=== PATIENT | male | born 1955 | race African-American/Black ===

== ENCOUNTER 2016-12-20 15:10 | Emergency (ER) | payer MEDICARE, OTHER ==
[~2016-12-20] VITALS: Ht 167.6 cm; Wt 76.0 kg
[~2016-12-20 15:10] MED LIST: HYDR12.56 PO; PRIN20TA2 PO
[2016-12-20 15:11] VITALS: BP 200/100; PULSE 75; RESP 18; TEMP 99.3; O2SAT 99
--- NOTE | 2016-12-20 15:44 | PD ---
Physical Exam Time Seen by Provider: 15:43 Narrative Pt presents to the ED for evaluation of hypertension. He has a hx of HTN and has been out of his medication for a few days. No complaints. BP 200/100. Otherwise VS within normal limits. Awaiting bed placement. Data Data Last Documented VS Vital Signs Date Time Temp Pulse Resp B/P Pulse Ox O2 Delivery O2 Flow Rate FiO2 12/20/16 15:11 99.3 75 18 200/100 99 Room Air MDM Supervised Visit with YOSI: Johanny Massey Dec 20, 2016 15:44
[2016-12-20] MEDS ORDERED: HYDR1CAP30 PO (16:23)
[2016-12-20] MEDS ORDERED: LISI10TA PO ×2 (16:24→16:45)
[2016-12-20] MEDS ORDERED: ULOR40TA (16:24)
[2016-12-20] MEDS ORDERED: MIRTA15 PO (16:24)
[2016-12-20] MEDS ORDERED: VENL75TA2 PO (16:24)
[2016-12-20] MEDS ORDERED: OMEP20CA2 (16:24)
[2016-12-20] MEDS ORDERED: CITA20TA4 PO (16:24)
[2016-12-20 16:38] VITALS: BP 210/99
--- NOTE | 2016-12-20 16:46 | PD ---
HPI . High blood pressure Chief Complaint: Hypertension Time Seen by Provider: 16:35 Travel History International Travel<30 days: No Contact w/Intl Traveler<30days: No Traveled to known affect area: No History of Present Illness HPI This patient presents with the chief complaint of high blood pressure. He states he had his blood pressure checked today and it was high. He is having no symptoms. He does admit that he has been out of his medication for the last couple days. PFSH Past Medical History Cardiovascular Problems: Yes Diabetes: No Diminished Hearing: No Hypertension: Yes Immune Disorder: No Social History Alcohol Use: Yes ( ) Tobacco Use: Yes (rarely) Substance Use: No Allergies-Medications (Allergen,Severity, Reaction): Coded Allergies: Darvocet-N 100 (Verified Allergy, Severe, GI issues, 12/20/16) Reported Meds & Prescriptions Reported Meds & Active Scripts Active Reported Omeprazole 20 Mg Cap DAILY Uloric (Febuxostat) 40 Mg Tab DAILY Citalopram (Citalopram Hydrobromide) 20 Mg Tab 20 Mg PO HS Venlafaxine ER 24 HR (Venlafaxine HCl) 75 Mg Tab 3 Tab PO DAILY Mirtazapine 15 Mg Tab 15 Mg PO HS Lisinopril-Hctz 10-12.5 Mg Tab 1 Tab PO DAILY Hydroxyzine Pamoate 25 Mg Cap 25 Mg PO Q6H PRN Review of Systems Except as stated in HPI: all other systems reviewed are Neg Eyes: No: Blurred Vision HENT: No: Headaches Cardiovascular: No: Chest Pain or Discomfort Respiratory: No: Shortness of Breath Musculoskeletal: No: Edema Physical Exam Narrative GENERAL: Awake and alert and in no acute distress. SKIN: Warm and dry. HEAD: Atraumatic. Normocephalic. EYES: Pupils equal and round. Extraocular movements are intact. ENT: No nasal bleeding or discharge. Mucous membranes pink and moist. NECK: Trachea midline. Neck is supple. CARDIOVASCULAR: Regular rate and rhythm. Heart sounds are normal. RESPIRATORY: No accessory muscle use. Lungs are clear with full air movement throughout. GASTROINTESTINAL: Abdomen soft, non-tender, nondistended. MUSCULOSKELETAL: No obvious deformities. No edema. NEUROLOGICAL: Awake and alert. No obvious cranial nerve deficits. Motor grossly within normal limits. Normal speech. PSYCHIATRIC: Appropriate mood and affect; insight and judgment normal. Data Data Last Documented VS Vital Signs Date Time Temp Pulse Resp B/P Pulse Ox O2 Delivery O2 Flow Rate FiO2 12/20/16 16:38 210/99 12/20/16 15:11 99.3 75 18 99 Room Air MDM Medical Decision Making Medical Screen Exam Complete: Yes Emergency Medical Condition: Yes Differential Diagnosis My differential diagnosis of high blood pressure includes but is not limited to "white coat syndrome," anxiety, essential hypertension, hypertensive emergency. Narrative Course This patient presents with high blood pressure. He has been out of his medication for a couple days. I will give him prescriptions to get him through until he sees his doctor next week. This patient has no signs or symptoms suggestive of hypertensive emergency such as chest pain, encephalopathy, acute peripheral edema, shortness of breath. Diagnosis Primary Impression: Hypertension Qualified Code: I10 - Essential hypertension Patient Instructions: Chronic Hypertension (DC), General Instructions Med/Other Pt SpecificInfo: Prescription(s) given Scripts Lisinopril-Hctz 10-12.5 Mg Tab1 Tab PO DAILY 30 Days Ref 0 Prov:Tatyana Steele MD 12/20/16 Disposition: 01 DISCHARGE HOME Condition: Stable Tatyana Steele MD Dec 20, 2016 16:46
== END 2016-12-20 17:12 | disposition home or self-care (01) ==
LOC: NEPD 15:10
DX: I10 Essential (primary) hypertension (principal); Z72.0 Tobacco use; Z86.79 Personal history of other diseases of the circulatory system
CPT/HCPCS: 99283